=== PATIENT | male | born 1945 | race Caucasian/White ===

== ENCOUNTER → 2025-01-01 13:10 | Outpatient (REF) | payer MEDICARE, OTHER, SELFPAY | LOC: RAD 13:10 | PROVIDERS: ATTENDING PHYSICIAN Surgery Vascular Surgery; FAMILY PHYSICIAN Family Medicine; OTHER PHYSICIAN Internal Medicine Cardiovascular Disease | DX: I73.9 Peripheral vascular disease, unspecified (principal) | CPT/HCPCS: 93922; 93925 ==